=== PATIENT | female | born 1995 | race Caucasian/White ===

== ENCOUNTER 2021-05-07 08:00 | Outpatient (CLI) | payer OTHER ==
[2021-05-07 18:10] LABS: RAPID STREP SCREEN Negative (Negative); RESPIRATORY SYNCYTIAL VIRUS Negative (Negative)
== END 2021-05-07 23:59 ==
LOC: LAB.N 08:00
PROVIDERS: ATTEND Family Medicine
DX: R07.0 Pain in throat (principal); Z20.822 Contact with and (suspected) exposure to COVID-19
CPT/HCPCS: 87070; 87280; 87430

== ENCOUNTER 2021-08-20 08:00 | Outpatient (CLI) | payer OTHER | END 2021-08-20 23:59 | LOC: LAB.N 08:00 | PROVIDERS: ATTEND Physician Assistant | DX: R05.9 Cough, unspecified (principal); R06.2 Wheezing; Z20.822 Contact with and (suspected) exposure to COVID-19 ==

== ENCOUNTER 2022-09-03 17:16 | Outpatient (CLI) | payer OTHER | END 2022-09-03 17:17 | disposition home or self-care (01) | LOC: LAB.N 17:16 | PROVIDERS: ATTEND Physician Assistant Medical | DX: Z20.1 Contact with and (suspected) exposure to tuberculosis (principal) | CPT/HCPCS: 36415; 81599; 86480 ==